=== PATIENT | female | born 1930 | race Caucasian/White ===

== ENCOUNTER 2016-11-16 12:15 | Emergency (ER) | payer BC ==
[~2016-11-16 12:15] MED LIST: ACET500CAP PO; C25 PO; GAS-X80 MG PO
== END 2016-11-16 15:11 | disposition home or self-care (01) ==
LOC: ER 12:15
DX: M79.602 Pain in left arm (principal); I48.91 Unspecified atrial fibrillation; Z86.718 Personal history of other venous thrombosis and embolism; Z88.0 Allergy status to penicillin; Z79.01 Long term (current) use of anticoagulants; Z79.899 Other long term (current) drug therapy
CPT/HCPCS: 93971; 99284